=== PATIENT | female | born 1975 | race Caucasian/White ===

== ENCOUNTER → 2022-09-16 14:31 | Outpatient (CLI) | payer SELFPAY ==
--- NOTE | ~2022-09-16 | XR_ITS ---
XR abdomen/kub 1V DATE: 09/16/2022 15:00 INDICATION: Kidney calculus TECHNIQUE: 2 AP views of the abdomen COMPARISON: 09/01/2005 KUB 09/01/2005 CT renal scan FINDINGS: There is an approximately 2.4 x 5 mm calcification overlying the expected position of the l eft ureter at the L3-4 level. One or more possible small faint calcifications overlying the right kidney noncontrast CT abdomen pel vis would be more sensitive and accurate for detection of urinary tract calculi. No visceromegaly is evident. There is a prominent amount of fecal material within the ascending and t ransverse colon. No bowel obstruction is evident. The psoas shadows are intact. Bilateral calcified pelvic phleboliths. The lung bases are clear. Heart size appears normal. Included skeletal structures appear normal. IMPRESSION: 2.4 x 5 mm calcification overlying left ureter at L3-4 level, possibly a left ureteral ca lcified calculus Cannot exclude nephrolithiasis; noncontrast CT abdomen pelvis would be more sensitive for detection o f urinary tract calculi Reviewed, dictated and finalized at [facility]. Reviewed, dictated and finalized at location [facility]. [facility] CENTER MANAGER IMPRESSION: 2.4 x 5 mm calcification overlying left ureter at L3-4 level, possi josh a left ureteral calcified calculus Cannot exclude nephrolithiasis; noncontrast CT abdomen pelvis would be more sen sitive for detection of urinary tract calculi
== END ==
PROVIDERS: PCP Family Medicine; Visit Provider Urology
DX: N20.0 Calculus of kidney (principal)
CPT/HCPCS: 74018

== ENCOUNTER 2022-09-18 00:51 | Day surgery (SDC) | payer MEDICAID, SELFPAY ==
[2022-09-17 08:47] VITALS: BMI 22.0
--- NOTE | 2022-09-17 08:50 | PC.NURSE ---
Report to the Outpatient Waiting Room, entrance under the green pavilion located off [facility], at time 0630 on date 09/18/22. Planned Procedure Time: 0830. Time changes happen often and if your time is changed the preop area will call you the afternoon before. - You and your visitor will be asked to self-screen and do not enter if you have any COVID symptoms. - Only one visitor is requested with a max of two and NO children visitors are allowed at this time. - The patient visitor may be requested to leave or wait in car when not with patient due to distancing restrictions. - A mask is REQUIRED within the hospital. Patients may have clear liquids (water, carbonated beverages, clear teas, apple juice) until 3 hours prior to surgery with a maximum of 20 ounces. - No food from midnight until time of surgery Take the following medications with a SIP of water the morning of surgery: PAIN PILLS IF NEEDED Medications to discontinue per physician: N/A Date to take last dose: N/A Please no make-up, nail syriac, hairspray, perfume, deodorant, or body powder the day of surgery. No jewelry (including any body piercings) or valuables the day of surgery, leave them at home. Please take a shower or bath the night before, or the morning of, surgery with an antibacterial soap. Wear comfortable, loose fitting clothing. - Jewelry must be removed prior to entering the operating room. Rings and piercings that are not removed may be cut off. - The hospital will not accept responsibility for valuables. - Please leave all valuables, including medications, at home the day of surgery. If you are going home after surgery, a licensed boat driver must drive you home. - NO public transportation without another adult if you receive anesthesia. - We recommend that an adult stay with you for 24 hours following discharge. - We also recommend that you do not drive, make important decision, drink alcoholic beverages, or take any drugs that were not prescribed by your health care provider for at least 24 hours after your discharge time. Follow any additional instructions given to you from your surgeon. If you or anyone in your household have experienced Covid symptoms in the past week, please notify your surgeon or the nurse liaison at the phone number below for possible testing. Telephone instructions given to PT - JUAN RIVERO and asked if any additional questions and then verbalized understanding. Patient advised to call surgeon office or pre surgery nurse liaison [phone] if any additional questions.
--- NOTE | ~2022-09-18 | CT_ITS ---
EXAMINATION: CT abdomen pelvis wo con DATE: 09/18/2022 07:51 INDICATION: Left ureteral stone. TECHNIQUE: Computed tomography (CT) of the abdomen and pelvis was performed without intravenous contr ast. Automated exposure control and iterative reconstruction technique were employed. The dose-length product was 202.60 mGy-cm. COMPARISON: CT abdomen and pelvis 09/01/2005 FINDINGS: The visualized portions of the lung bases demonstrate mild atelectasis. A calcified right l nicho nodule is consistent with old granulomatous disease. No pleural effusion. The heart size is cynthia l. No pericardial effusion. A calcification in the liver is consistent with old granulomatous disease . The spleen, gallbladder, pancreas, and adrenal glands are normal. There are 7 stones in right kidne y measuring up to 3 mm. There are 4 stones in left kidney measuring up to 4 mm. There is an umbilical hernia containing fat. There are no dilated loops of bowel. The appendix is normal. There are no pat hologically enlarged lymph nodes. There is no free intraperitoneal fluid. There is mild lumbar spondy losis. IMPRESSION: 1. Bilateral nonobstructing kidney stones. Reviewed, dictated and finalized at location A. CAL MANAGER
--- NOTE | ~2022-09-18 | XR_ITS ---
EXAMINATION: XR abdomen/kub 1V DATE: 09/18/2022 07:09 INDICATION: Kidney stone. TECHNIQUE: A supine view of the abdomen on 2 radiographs was obtained. COMPARISON: Abdomen radiographs 09/16/2022 FINDINGS: There are no dilated loops of bowel. The kidneys are obscured by bowel. There are approxima tely 3 stones in right kidney measuring up to 4 mm. There are phleboliths in the pelvis. IMPRESSION: 1. Right kidney stones. Reviewed, dictated and finalized at location A. [employer] IMPRESSION: 1. Right kidney stones.
[2022-09-18 06:59] LABS: Add Urine Microscopic? NO; Appearance Urine Clear (Clear); Bilirubin Urine Negative (Negative); Blood Urine Negative (Negative); Color Urine Light Yellow (Yellow); Glucose Urine UA Negative (Negative); Ketones Urine Negative (Negative); Leukocyte Esterase Ur Negative LEU/UL (Negative); Nitrate Urine Negative (Negative); Protein Urine Negative (Negative); Specific Grav Ur >= 1.030 (1.001-1.035); Urobilinogen Urine 0.2 mg/dL (<2.0)
[2022-09-18] MEDS: LACTATED RINGERS 1,000 ML 30 ML IV CONT (07:18)
--- NOTE | 2022-09-18 07:32 | WPDHPUPDATE1 ---
History and Physical Update Update Date/Time: 09/18/22 07:32 History and Physical has been reviewed, including an updated exam of the patient. There are NO changes in the patient's condition. Risks, benefits, and alternatives have been discussed and questions answered. Patient agrees to proceed with procedure.
[2022-09-18 07:33] VITALS: BP 119/75; PULSE 73; RESP 16; TEMP 37; O2SAT 100
--- NOTE | 2022-09-18 07:47 | SUR.PREOP ---
PT TO CT PER WHEELCHAIR
[2022-09-18 07:52] LABS: Prothrombin Time 13.2 Seconds (11.1-14.7)
[2022-09-18 07:53] LABS: Partial Thromboplastin Time 28.1 SECONDS (22.3-36.8)
--- NOTE | 2022-09-18 08:20 | SUR.PREOP ---
0882 DR OCHOA IN TO SEE PT, SURGERY CANCELLED FOR TODAY.
== END 2022-09-18 08:20 | disposition home or self-care (01) ==
PROVIDERS: PCP Family Medicine; Visit Provider Urology
PROC: (CPT 50590; principal; 2022-09-18 08:30)
DX: N20.0 Calculus of kidney (principal); Z53.9 Procedure and treatment not carried out, unspecified reason
CPT/HCPCS: 36415; 74018; 74176; 81003; 85610; 85730; 99212; G0463; J7120